=== PATIENT | female | born 2005 | race Caucasian/White ===

== ENCOUNTER 2024-06-25 20:42 | Emergency (ER) | payer OTHER ==
[~2024-06-25] VITALS: Ht 162.6 cm; Wt 63.5 kg
[2024-06-25 21:11] VITALS: BP 119/66; PULSE 78; RESP 16; TEMP 98; O2SAT 99
[2024-06-25] MEDS: LIDOCAINE MPF 1% 10 MG/ML VIAL INJ ONE (21:51)
[2024-06-25] MEDS ORDERED: IBUP-1842 PO (21:55)
== END 2024-06-25 22:17 | disposition home or self-care (01) ==
LOC: MED 20:42
DX: S61.217A Laceration without foreign body of left little finger without damage to nail, initial encounter (principal); Z79.899 Other long term (current) drug therapy; W26.0XXA Contact with knife, initial encounter; Y93.G3 Activity, cooking and baking; Y92.89 Other specified places as the place of occurrence of the external cause; Y99.8 Other external cause status
CPT/HCPCS: 12001; 99282